=== PATIENT | female | born 1985 | race Caucasian/White ===

== ENCOUNTER 2017-02-16 18:59 | Emergency (ER) | payer BC | END 2017-02-16 20:17 | disposition left against medical advice (07) | LOC: ED 18:59 | DX: Z53.21 Procedure and treatment not carried out due to patient leaving prior to being seen by health care provider (principal) ==

== ENCOUNTER 2019-02-24 05:26 | Inpatient (IN) | payer BC ==
[~2019-02-24] VITALS: Ht 157.5 cm; Wt 98.0 kg
[2019-02-24 05:32] VITALS: Ht 157.5 cm; Wt 98.0 kg
[2019-02-24 06:48] LABS: BASOPHIL % 0.3 % (0-2); PLATELET COUNT 206 x10^3mcL (130-400); RED CELL DISTRIBUTION WIDTH 13.3 % (11.5-14.5)
[2019-02-24 07:05] LABS: CALCIUM 8.8 mg/dL (8.5-10.1); CARBON DIOXIDE 21.4 mmol/L (21-32); CHLORIDE SERUM 102 mmol/L (98-107); CREATININE SERUM 0.5 mg/dL (0.6-1.0); GFR1 > 60 mL/min; GLUCOSE SERUM 99 mg/dL (74-106); POTASSIUM SERUM 3.6 mmol/L (3.5-5.1); SODIUM SERUM 137 mmol/L (136-145)
[2019-02-24 07:10] LABS: ALBUMIN 4.1 g/dL (3.4-5.0); ALKALINE PHOSPHATASE 59 U/L (46-116); ALT/SGPT 90 U/L (14-59); AST/SGOT 34 U/L (15-37); BILIRUBIN TOTAL 0.88 mg/dL (0.20-1.00); LIPASE 103 IU/L (73-393); TOTAL PROTEIN, SERUM 7.3 g/dL (6.4-8.2)
[2019-02-24 07:25] LABS: UA SPECIFIC GRAVITY >=1.030 (1.005-1.035); microscopic required? YES; urine erythrocyte TRACE (NEGATIVE)
[2019-02-24] MEDS ORDERED: MOTRIN PO (07:44)
[2019-02-24] MEDS ORDERED: BYSTOLIC2.5 M1 (08:36)
[2019-02-24 10:28] LABS: CHOLESTEROL/HDL RATIO 2.3; MAGNESIUM 1.7 mg/dL (1.8-2.4); PHOSPHOROUS 3.1 mg/dL (2.5-4.9)
[2019-02-24 10:38] LABS: FREE T4 1.42 ng/dL (0.76-1.46); FREE THYROXINE INDEX 4.5 ug/dL (1.4-4.5); T4(THYROXINE) 11.9 ug/dL (4.7-13.3)
[2019-02-24 11:07] LABS: AMPHETAMINE QUAL UR NONE DETECTED (See below)
[2019-02-24 11:25] LABS: T3 TOTAL 1.04 ng/mL
[2019-02-24 15:43] VITALS: BP 145/84
[2019-02-24 17:26] VITALS: BP 128/86
[2019-02-24 21:22] VITALS: BP 116/73
[2019-02-25 06:27] VITALS: BP 115/78
[2019-02-25 07:27] LABS: BASOPHIL % 0.2 % (0-2); PLATELET COUNT 180 x10^3mcL (130-400); RED CELL DISTRIBUTION WIDTH 13.2 % (11.5-14.5)
[2019-02-25 07:37] LABS: CALCIUM 8.4 mg/dL (8.5-10.1); CARBON DIOXIDE 26.1 mmol/L (21-32); CHLORIDE SERUM 105 mmol/L (98-107); CREATININE SERUM 0.5 mg/dL (0.6-1.0); GFR1 > 60 mL/min; GLUCOSE SERUM 89 mg/dL (74-106); POTASSIUM SERUM 3.6 mmol/L (3.5-5.1); SODIUM SERUM 140 mmol/L (136-145)
[2019-02-25 08:50] VITALS: BP 127/77
[2019-02-25 17:28] VITALS: BP 124/81
[2019-02-25 21:50] VITALS: BP 116/77
[2019-02-26 05:04] VITALS: BP 142/94
[2019-02-26 07:04] LABS: CALCIUM 8.9 mg/dL (8.5-10.1); CHLORIDE SERUM 106 mmol/L (98-107); CREATININE SERUM 0.6 mg/dL (0.6-1.0); GFR1 > 60 mL/min; GLUCOSE SERUM 108 mg/dL (74-106); POTASSIUM SERUM 4.1 mmol/L (3.5-5.1); SODIUM SERUM 143 mmol/L (136-145)
[2019-02-26 08:29] LABS: BASOPHIL % 0.3 % (0-2); PLATELET COUNT 184 x10^3mcL (130-400); RED CELL DISTRIBUTION WIDTH 14.2 % (11.5-14.5)
[2019-02-26 09:38] VITALS: BP 139/93
[2019-02-26 11:38] VITALS: BP 139/93
== END 2019-02-26 12:41 | disposition home or self-care (01) | DRG 343 ==
LOC: ED 05:26 → MU 07:34
PROVIDERS: Emergency Medicine; Surgery; ADMIT Internal Medicine
PROC: 0DTJ4ZZ Resection of Appendix, Percutaneous Endoscopic Approach (ICD-10-PCS; principal; 2019-02-24 08:30)
DX: K35.80 Unspecified acute appendicitis (principal); I10 Essential (primary) hypertension; Z91.14 Patient's other noncompliance with medication regimen
CPT/HCPCS: 83880; 84439; C9113; J0330; J1170; J1885; J2060; J2270; J2405; J2543; J2704; J2710; J3010; J3490; J7030; J7120